=== PATIENT | female | born 1995 | race Caucasian/White ===

== ENCOUNTER → 2023-07-16 12:29 | Outpatient (CLI) | payer OTHER | END | disposition home or self-care (01) | LOC: NST 12:29 | PROVIDERS: ATTEND General Practice | DX: Z34.83 Encounter for supervision of other normal pregnancy, third trimester (principal); Z3A.33 33 weeks gestation of pregnancy ==

== ENCOUNTER 2023-08-05 13:23 | Outpatient (CLI) | payer OTHER ==
[~2023-08-05] VITALS: Ht 154.9 cm; Wt 56.7 kg
[2023-08-05] MEDS ORDERED: RINGERS SOLUTION,LACTATED 1,000 ML IV SCH (14:00)
[2023-08-05] MEDS ORDERED: PRENATAL TABLE1 EAC1 PO (14:14)
[2023-08-05] MEDS ORDERED: IRON18 MG PO (14:15)
[2023-08-05 14:16] LABS: URINE APPEARANCE Clear; URINE BILIRRUBIN Negative (NEGATIVE); URINE BLOOD Negative; URINE COLOR Yellow; URINE GLUCOSE Negative (NEGATIVE); URINE LEUKOCYTE Negative; URINE NITRATE Negative; URINE PROTEIN Negative (NEGATIVE); URINE UROBILINOGEN 0.2 E.U./dl
[2023-08-05 14:20] LABS: URINE BACTERIA 26.4 uL (0.0-1933); URINE EPITHELIAL CELLS 8.9 uL (0.0-38.8)
[2023-08-05 14:28] LABS: HEMOGLOBIN 13.1 g/dL (12.0-15.00); MEAN CELL VOLUME 89.2 fL (80.00-100.00); MEAN CORPUSCULAR HEMOGLOBIN 30.8 pg (27.00-32.0); MEAN CORPUSCULAR HGB CONC 34.5 g/dl (32.0-36.0); PLATELET COUNT 137 K/uL (150-450); RED BLOOD COUNT 4.26 M/uL (4.00-6.00); RED CELL DISTRIBUTION WIDTH 13.9 % (11.5-14.5)
[2023-08-05 14:37] LABS: URINE RBC 0.1 uL (0.0-20.8); URINE WBC 0.4 uL (0.0-23.2)
[2023-08-05 15:06] LABS: BILIRUBIN TOTAL 0.34 mg/dL (0.3-1.2); CALCIUM 9.3 mg/dL (8.5-10.1); CREATININE SERUM 0.54 mg/dL (0.55-1.02); GFR 133.47; GLOBULINA 3.6 G/DL (2.4-3.5); POTASSIUM 4.18 mEq/L (3.5-5.1); TOTAL PROTEIN 6.6 gm/dL (6.4-8.2)
== END 2023-08-05 19:32 | disposition home or self-care (01) ==
LOC: OBS/DEL 13:23
PROVIDERS: ATTEND Obstetrics & Gynecology
DX: O99.810 Abnormal glucose complicating pregnancy (principal); Z3A.36 36 weeks gestation of pregnancy